=== PATIENT | female | born 1985 | race Caucasian/White ===

== ENCOUNTER 2018-04-03 16:27 | Emergency (ER) | payer OTHER, MEDICAID ==
[~2018-04-03] VITALS: Ht 160 cm; Wt 97.5 kg
[~2018-04-03 16:27] MED LIST: AUGMENTIN 875-1 EACH PO; IBUPROFEN 800800 MG PO
[2018-04-03 16:46] LABS: URINE BILIRUBIN NEGATIVE (Negative); URINE BLOOD NEGATIVE (Negative); URINE CLARITY CLEAR; URINE COLOR YELLOW; URINE GLUCOSE-RANDOM NEGATIVE (Negative); URINE KETONES NEGATIVE (Negative); URINE LEUKOCYTES-REFLEX NEGATIVE (Negative); URINE NITRITE-REFLEX NEGATIVE (Negative); URINE PROTEIN NEGATIVE (Negative); URINE UROBILINOGEN 0.2 E.U./dl (0.2-1.0)
[2018-04-03] MEDS ORDERED: LIDOCAINE VISC100 ML TOP (17:17)
[2018-04-03] MEDS ORDERED: ZOVIRAX400 MG PO (17:17)
[2018-04-03] MEDS ORDERED: NORCO 5-325 TA1 EACH PO (17:17)
[2018-04-03 17:35] VITALS: BP 134/66
[2018-04-05 21:10] LABS: HSV 1 DNA Positive (Negative); HSV 2 DNA Negative (Negative)
== END 2018-04-03 17:36 | disposition home or self-care (01) ==
LOC: M.ERS 16:27
PROVIDERS: Nurse Practitioner Family
DX: B00.9 Herpesviral infection, unspecified (principal); R30.0 Dysuria

== ENCOUNTER 2018-11-26 17:30 | Emergency (ER) | payer OTHER, MEDICAID ==
[~2018-11-26] VITALS: Ht 157.5 cm; Wt 97.5 kg
[~2018-11-26 17:30] MED LIST changes: +LIDOCAINE VISC100 ML TOP; +NORCO 5-325 TA1 EACH PO; +ZOVIRAX400 MG PO
[2018-11-26] MEDS ORDERED: AZELASTINE137 MCG/0. NASAL (18:38)
[2018-11-26 18:50] VITALS: BP 157/102
== END 2018-11-26 18:50 | disposition home or self-care (01) ==
LOC: M.ERS 17:30
DX: J30.2 Other seasonal allergic rhinitis (principal); H65.91 Unspecified nonsuppurative otitis media, right ear